=== PATIENT | male | born 1995 | race African-American/Black ===

== ENCOUNTER 2016-08-10 19:00 | Emergency (ER) | payer OTHER ==
[~2016-08-10] VITALS: Ht 198.1 cm; Wt 88.9 kg
[2016-08-10 19:01] VITALS: BP 133/88
[2016-08-11 15:06] LABS: CHLAMYDIA TRACHOMATIS-PCR Positive (Negative); NEISSERIA GONORRHEA-PCR Positive (Negative)
== END 2016-08-10 19:47 | disposition home or self-care (01) ==
LOC: ER 19:00
PROVIDERS: Physician Assistant
DX: R30.9 Painful micturition, unspecified (principal); Z11.3 Encounter for screening for infections with a predominantly sexual mode of transmission